=== PATIENT | female | born 1980 | race Caucasian/White ===

== ENCOUNTER 2022-09-25 14:59 | Emergency (ER) | payer OTHER, SELFPAY ==
[2022-09-25 15:12] VITALS: BP 124/71; PULSE 81; RESP 18; TEMP 37.7; O2SAT 100
--- NOTE | 2022-09-25 18:07 | ED.URI ---
HPI - URI/Sore Throat General Chief Complaint: Upper Respiratory Infection Stated Complaint: cough/ back pain chest pain Time Seen by Provider: 09/25/22 18:08 Source: patient, RN notes reviewed and old records reviewed Mode of arrival: ambulatory Limitations: no limitations History of Present Illness HPI Narrative: 42 year old female who presents to [facility] care with complaints of scratchy throat and hoarseness last week with since cough which is dry fevers, has felt like asthma attack at times with tightness in chest with breathing but doesn't have history of asthma, feels like she just can't breath. Patient reports that she has had COVID vaccinations but no flu shot, did home COVID test x2 this past week with last one Tuesday which was negative. Patient reports that she has taken some Tylenol. MD elicited complaint: cough, rhinorrhea, nasal congestion and other (dyspnea) Onset (ago): week(s) (1) Related Data Allergies Allergy/AdvReac Type Severity Reaction Status Date / Time No Known Allergies Allergy Verified 09/25/22 16:58 Review of Systems Review of Systems: CONSTITUTIONAL:Reports malaise, chills, sweats, or fever. EYES: Denies visual changes, redness, or discharge. ENT: Reports rhinorrhea, congestion, sinus pain, no otalgia no present sore throat. CARDIOVASCULAR: Denies chest pain, palpitations, or edema. RESPIRATORY: Reports cough.? Reports some dyspnea. GASTROINTESTINAL: Denies abdominal pain, nausea, vomiting, diarrhea SKIN: Denies rash or itching. MUSCULOSKELETAL: Denies myalgia. NEUROLOGIC: Denies headache. All systems reviewed & are unremarkable except as noted in HPI and below PMFSH Surgical History Surgical History (Updated 09/30/22 @ 22:01 by Elis Petersen NP) History of tonsillectomy Previous section Social History Social History (Updated 09/30/22 @ 22:01 by Elis Petersen NP) Smoking status: Never smoker Alcohol intake: unknown Substance use type: does not use Gender identity (if verbalized by the patient): Female Comments At time of signature, agree with nursing past medical, surgical, social and family history. There is no relevant family history pertinent to the presenting complaint Exam Narrative: GENERAL: Well-appearing, well-nourished, and in no acute distress. HEAD: Normocephalic EYES: PERRLA, conjunctivae clear ENT: Nares clear, turbinates edematous and erythematous, clear discharge. Mucous membranes moist. TM pearly benavidez with dull light reflex bilaterally; no tragal tenderness. Oropharynx erythematous without lesions. Tonsils not present no throat exudates, no drooling, no hoarseness, no trismus, uvula midline.post nasal drainage. NECK: Supple. No lymphadenopathy CHEST: Clear to auscultation, breath sounds equal. No wheezing, rhonchi, rales, or stridor. No respiratory distress, speaks in full sentences.cough with some shortness of breath. HEART: Regular rate and rhythm. No murmur heard. SKIN: Warm, dry, no rash. NEURO: Alert and oriented x3. PSYCH: Normal mood and affect Course Course Emergency Course: Patient is aware of diagnosis, understands and agrees to treatment plan.? Anticipatory guidance given.? Patient agrees to follow-up as directed and is aware of reasons to seek care at the emergency department. Portions of this record may have been created with voice recognition software Level of Care: Express Care Visit Vital Signs Vital signs: Vital Signs Temperature 37.7 C H 09/25/22 15:12 Pulse Rate 81 09/25/22 15:12 Respiratory Rate 18 09/25/22 15:12 Blood Pressure 124/71 09/25/22 15:12 Pulse Oximetry 100 09/25/22 15:12 Oxygen Delivery Room Air 09/25/22 15:12 Temperature 37.7 C H 09/25/22 15:12 Pulse Rate 81 09/25/22 15:12 Respiratory Rate 18 09/25/22 15:12 Blood Pressure 124/71 09/25/22 15:12 Pulse Oximetry 100 09/25/22 15:12 Oxygen Delivery Room Air 09/25/22 15:12
== END 2022-09-25 18:32 | disposition home or self-care (01) ==
PROVIDERS: Emergency Provider Registered Nurse; PCP Family Medicine
DX: J06.9 Acute upper respiratory infection, unspecified (principal)
CPT/HCPCS: 87804; 99213; G0463